=== PATIENT | female | born 1975 | race Caucasian/White ===

== ENCOUNTER 2016-07-24 17:38 | Emergency (ER) | payer OTHER ==
[~2016-07-24] VITALS: Ht 175.3 cm; Wt 68.9 kg
[~2016-07-24 17:38] MED LIST: DEPAKOTE500 MG PO; KLONOPIN0.5 M1 PO; MOTRIN800 MG PO; MUCINEX D ER T1 EACH PO; NAPROSYN500 MG PO; NOHOMEMEDS; PREDNISONE20 MG PO; TESSALON PERLE100 MG PO; VENTOLIN HFA18 GM IH
[2016-07-24] MEDS ORDERED: REGLAN10 MG PO (21:00)
[2016-07-24] MEDS ORDERED: PERCOCET 5/31 TABLET PO (21:00)
[2016-07-24 21:22] VITALS: BP 113/71
== END 2016-07-24 21:22 | disposition home or self-care (01) ==
LOC: EME 17:38
DX: G97.1 Other reaction to spinal and lumbar puncture (principal); J44.9 Chronic obstructive pulmonary disease, unspecified; F17.200 Nicotine dependence, unspecified, uncomplicated
CPT/HCPCS: 99281; 99285; J1100; J1885; J2765; J7030

== ENCOUNTER 2017-06-09 17:19 | Emergency (ER) | payer OTHER ==
[~2017-06-09] VITALS: Ht 175.3 cm; Wt 75.0 kg
[~2017-06-09 17:19] MED LIST changes: +PERCOCET 5/31 TABLET PO; +REGLAN10 MG PO
[2017-06-09 17:50] VITALS: BP 125/71
[2017-06-09 18:33] LABS: HEMATOCRIT 42.8 % (36.0-46.0); HEMOGLOBIN 14.4 G/DL (11.9-15.5); MCH 30.8 PG (29.0-34.0); MCHC 33.6 G/DL (30.0-36.0); MCV 91.6 FL (83-99); RBC DIS.WIDTH-CV 12.1 % (11.8-14.6); RBC DIS.WIDTH-SD 40.6 % (39-53); RED BLOOD COUNT 4.67 M/uL (3.80-5.20); WHITE BLOOD COUNT 7.4 K/uL (4.1-10.2)
[2017-06-09 18:45] LABS: CHLORIDE 107 mEq/L (99-109); POTASSIUM 4.2 mEq/L (3.7-5.4); SODIUM 140 mEq/L (136-147)
[2017-06-09 18:47] LABS: GLUCOSE 82 mg/dL (70-99)
[2017-06-09 18:51] LABS: CREATININE 0.8 mg/dL (0.6-1.3); GFR ESTIMATE (CALCULATED) > 59 mL/min/; UREA NITROGEN (BUN) 9 mg/dL (9-23)
[2017-06-09 18:59] LABS: TROP-I INTERPRETATION NEGATIVE; TROPONIN-I < 0.01 ng/mL (0.0-0.30)
[2017-06-09 19:34] LABS: PLAT.SUFFICIENCY ADEQUATE
[2017-06-09 20:16] LABS: PLATELET COUNT 267 K/uL (156-360)
[2017-06-09] MEDS ORDERED: PROAIR HFA8.5 GM IH (20:20)
[2017-06-09] MEDS ORDERED: DELTASONE20 M1 PO (20:20)
[2017-06-09] MEDS ORDERED: NAPROXEN500 MG PO (20:20)
== END 2017-06-09 20:34 | disposition home or self-care (01) ==
LOC: EME 17:19
DX: R07.81 Pleurodynia (principal); J44.9 Chronic obstructive pulmonary disease, unspecified; F17.200 Nicotine dependence, unspecified, uncomplicated; F31.9 Bipolar disorder, unspecified; F41.8 Other specified anxiety disorders
CPT/HCPCS: 71046; 80048; 84484; 85027; 93005; J7512